=== PATIENT | male | born 1990 | race American Indian/Alaskan Native ===

== ENCOUNTER 2016-10-18 14:37 | Emergency (ER) | payer SELFPAY ==
[2016-10-18 14:49] VITALS: BP 142/88
--- NOTE | 2016-10-18 15:01 | EDM.PDOC ---
ED HPI Trauma - General Chief Complaint: Upper Extremity Injury/Pain Stated Complaint: HAND Time Seen by Provider: 10/18/16 14:50 Source: Reports: Patient History Limitations: Reports: No limitations - History of Present Illness INITIAL COMMENTS - FREE TEXT/NARRATIVE: This 26 yo male patient reports to the ED with right hand pain. The patient reports he was drinking last night, got mad and punched a steel beam. The patient reports most of the pain is in his right 2nd-5th metacarpals extending to his wrist. Symptom Onset Date: 10/17/16 Occurred When: yesterday Occurred Where: other Method of Injury: direct blow Severity: moderate Pain/Injury Location: Reports: upper extremity, right Consciousness: Reports: no loss of consciousness Associated Symptoms: Reports: no other symptoms Allergies/ADRs: Allergies ibuprofen Allergy (Verified 10/18/16 14:43) Headache Penicillins Allergy (Verified 10/18/16 14:43) Rash Home Medications: Ambulatory Orders Naproxen 1 tab PO BID PRN 10/18/16 [Confirmed 10/18/16] Past Medical History - Past Health History Medical/Surgical History: Denies Medical/Surgical History Social & Family History - Tobacco Use Smoking Status *Q: Current Every Day Smoker Years of Tobacco use: 8 Packs/Tins Daily: 0.2 Used Tobacco, but Quit: No Month Tobacco Last Used: december Second Hand Smoke Exposure: Yes - Caffeine Use Caffeine Use: Reports: Coffee, Soda - Alcohol Use Days Per Week of Alcohol Use: 1 Number of Drinks Per Day: 4 Total Drinks Per Week: 4 Date of Last Drink: 10/17/16 Time of Last Drink: 02:00 - Recreational Drug Use Recreational Drug Use: No Review of Systems - Review of Systems Review Of Systems: ROS reveals no pertinent complaints other than HPI. Trauma Exam - Physical Exam Exam: See Below Exam Limited By: No limitations General Appearance: Reports: alert, WD/WN, moderate distress Head: Reports: atraumatic, normocephalic Eyes: bilateral eye: EOMI, normal inspection, PERRL Ears: Reports: normal external exam, normal canal, hearing grossly normal, normal TMs Nose: Reports: normal inspection, normal mucousa, no blood Throat/Mouth: Reports: Normal inspection, Normal lips, Normal teeth, Normal gums , Normal oropharynx, Normal voice, No airway compromise Neck: Reports: non-tender, full range of motion, normal alignment, normal inspection Respiratory Exam: Reports: no respiratory distress, lungs clear, normal breath sounds Cardiovascular: Reports: normal peripheral pulses, regular rate, rhythm, no edema, no gallop, no JVD, no murmur, no rub GI/Abdominal: Reports: normal bowel sounds, soft, non tender, no organomegaly, no distention, no abnormal bruit, no mass (Male) Exam: Deferred Rectal (Males) Exam: Deferred Back: Reports: full range of motion, normal inspection, non-tender Extremities: Reports: bony-point tenderness (right hand 2nd - 5th metacarpals), pain with movement, tenderness, other (the patient also has superficial wounds to the area) 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, alert, normal mood/affect, oriented x 3 Skin: Reports: Normal color, Warm/dry - Juliette Coma Score Best Eye Response (Rosie): (4) open spontaneously Best Verbal Response (Rosie): (5) oriented Best Motor Response (Rosie): (6) obeys commands Juliette Total: 15 ED TRAUMA EXTREMITY PROCEDURES - Splinting Right Upper Extremity Splint site: Right forearm - hand Pre-procedure NV status: normal Post-procedure NV status: normal Splint material: fiberglass Splint design: boxer splint Applied & form fitted by: provider Provider post-splint application NV check: NV status normal Complications: No Course - Vital Signs Last Recorded V/S: Last Vital Signs Temp 37.3 C 10/18/16 14:48 Pulse 87 10/18/16 14:48 Resp 20 10/18/16 14:48 BP 142/88 H 10/18/16 14:48 Pulse Ox 99 10/18/16 14:48 Departure - Departure Time of Disposition: 15:24 Disposition: Home, Self-Care 01 Condition: fair Clinical Impression: Fracture of metacarpal of right hand, closed Instructions: Metacarpal Fracture, [id number] Forms: ED Department Discharge Care Plan Goals: The patient was advised of the examination and x-ray results during the visit. The patient was placed in a boxer's splint while in the ED for stabilization of the fracture. The patient should follow-up with an language specialist for continued evaluation and further management. The patient should rest, ice and elevate the extremity. The patient may take Tylenol for temporary symptom relief. If the patient has any additional symptoms or concerns, the patient should either visit an language specialist, his primary care facility or return to the emergency department.
--- NOTE | 2016-10-18 15:09 | CR ---
CLINICAL HISTORY: 26-year-old male with right hand pain. INTERPRETATION: Acute mildly angulated, fractures base of the fourth and fifth metacarpals (both met acarpals show evidence of previous, healed fractures). Overlying soft tissue swelling but no joint d islocation. No foreign bodies. No other hand or right wrist fracture/dislocation. CONCLUSION: Acute fractures base of the fourth and fifth metacarpals right hand.
== END 2016-10-18 15:32 | disposition home or self-care (01) ==
LOC: DL.ED 14:37
DX: S62.314A Displaced fracture of base of fourth metacarpal bone, right hand, initial encounter for closed fracture (principal); S62.316A Displaced fracture of base of fifth metacarpal bone, right hand, initial encounter for closed fracture; F17.210 Nicotine dependence, cigarettes, uncomplicated; Z88.0 Allergy status to penicillin; Z88.6 Allergy status to analgesic agent; W22.8XXA Striking against or struck by other objects, initial encounter
CPT/HCPCS: 29125; 73130-RT; 99283

== ENCOUNTER 2017-03-23 11:27 | Emergency (ER) | payer SELFPAY ==
[2017-03-23 11:38] VITALS: BP 116/82
--- NOTE | 2017-03-23 11:39 | EDM.PDOC ---
ED HPI GENERAL MEDICAL PROBLEM - General Chief Complaint: ENT Problem Stated Complaint: ABSESS TOOTH Time Seen by Provider: 03/23/17 11:33 Source of Information: Reports: Patient History Limitations: Reports: No Limitations - History of Present Illness INITIAL COMMENTS - FREE TEXT/NARRATIVE: 26 yo male presents with dental pain x 2 days. States that he woke this am with swelling of face. Mild swelling noted to lateral to nose on right. dental carries noted to tooth #7 with erythema and swelling noted. Denies fever or other complaints. 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: Other Medication(s) (oragel, mouthwash) Right Lower Oral/Mouth Pain Score (Numeric/FACES): 7 - Related Data Allergies Allergy/AdvReac Type Severity Reaction Status Date / Time ibuprofen Allergy Headache Verified 03/23/17 11:34 Penicillins Allergy Rash Verified 03/23/17 11:34 Home Meds: Home Meds Naproxen 1 tab PO BID PRN 10/18/16 [History] Past Medical History - Past Health History Medical/Surgical History: Denies Medical/Surgical History - Past Surgical History Musculoskeletal Surgical History: Reports: Arthroscopic Knee, Other (See Below) Social & Family History - Tobacco Use Smoking Status *Q: Current Every Day Smoker Years of Tobacco use: 8 Packs/Tins Daily: 0.2 Used Tobacco, but Quit: No Month Tobacco Last Used: december Second Hand Smoke Exposure: Yes - Caffeine Use Caffeine Use: Reports: Coffee, Soda - Alcohol Use Days Per Week of Alcohol Use: 1 Number of Drinks Per Day: 4 Total Drinks Per Week: 4 - Recreational Drug Use Recreational Drug Use: No ED ROS ENT - Review of Systems Review Of Systems: ROS reveals no pertinent complaints other than HPI. ED EXAM, ENT - Physical Exam Exam: See Below Exam Limited By: No Limitations General Appearance: Alert, WD/WN, No Apparent Distress Eye Exam: Bilateral Eye: Normal Inspection, PERRL Nose: Normal Inspection, Normal Mucousa, No Blood Mouth/Throat: Normal Lips, Dental Abcess, Dental Pain, Dental Tenderness, Dental Trauma Head: Facial Swelling (right side of nose that is mild) Respiratory/Chest: No Respiratory Distress, Lungs Clear, Normal Breath Sounds, No Accessory Muscle Use, Chest Non-Tender Cardiovascular: Normal Peripheral Pulses, Regular Rate, Rhythm, No Edema, No Gallop, No JVD, No Murmur, No Rub Course - Vital Signs Last Recorded V/S: Last Vital Signs Temp 98.6 F 03/23/17 11:35 Pulse 83 03/23/17 11:35 Resp 18 03/23/17 11:35 BP 116/82 03/23/17 11:35 Pulse Ox 93 L 03/23/17 11:35 - Orders/Labs/Meds Meds: Medications Discontinued Medications Generic Name Dose Route Start Last Admin Trade Name Freq PRN Reason Stop Dose Admin Clindamycin HCl 300 mg 03/23/17 11:46 03/23/17 11:49 Cleocin PO 03/23/17 11:47 300 mg ONETIME ONE Administration Departure - Departure Time of Disposition: 11:51 Disposition: Home, Self-Care 01 Condition: Good Clinical Impression: Dental abscess - Discharge Information Instructions: Dental Abscess Forms: ED Department Discharge Additional Instructions: Make sure you call your dentist on Saturday for an appointment. Continue using the over the counter medications as directed. Follow up with dentist as soon as possible.
[2017-03-23] MEDS ORDERED: Clindamycin HCl 150 MG Cap PO ONE (11:46)
== END 2017-03-23 11:58 | disposition home or self-care (01) ==
LOC: DL.ED 11:27
DX: K04.7 Periapical abscess without sinus (principal); F17.210 Nicotine dependence, cigarettes, uncomplicated; Z88.0 Allergy status to penicillin; Z88.6 Allergy status to analgesic agent
CPT/HCPCS: 99282; A9270

== ENCOUNTER 2021-04-01 22:56 | Emergency (ER) | payer SELFPAY ==
[2021-04-01 23:39] VITALS: BP 133/104; PULSE 61
[2021-04-01] MEDS ORDERED: Bacitracin Oint 1 GM U/D Packet TOP ONE (23:39)
[2021-04-01] MEDS ORDERED: Diphtheria,Pertussis(Acell),Tetanus Vaccine 0.5 ML Syringe IM ONE (23:39)
[2021-04-01] MEDS ORDERED: Lidocaine 1% 30 ML SDV INJECT ONE (23:39)
--- NOTE | 2021-04-02 00:07 | EDM.PDOC ---
ED HPI GENERAL MEDICAL PROBLEM - General Chief Complaint: Upper Extremity Injury/Pain Stated Complaint: LEFT RING FINGER & PINKY FINGER CUT Time Seen by Provider: 04/01/21 23:45 Source of Information: Reports: Patient History Limitations: Reports: No Limitations - History of Present Illness INITIAL COMMENTS - FREE TEXT/NARRATIVE: ED with c/o laceration to left 4th and 5th fingers. States removing sudhir at work and cut on piece of vinyl. Left Finger-Little Pain Score (Numeric/FACES): 4 - Related Data Allergies Allergy/AdvReac Type Severity Reaction Status Date / Time ibuprofen Allergy Headache Verified 03/23/17 11:34 Penicillins Allergy Rash Verified 03/23/17 11:34 Home Meds: Home Meds Naproxen 1 tab PO BID PRN 10/18/16 [History] Past Medical History - Past Health History Medical/Surgical History: Denies Medical/Surgical History HEENT History: Reports: None Cardiovascular History: Reports: None Respiratory History: Reports: None Gastrointestinal History: Reports: None Genitourinary History: Reports: None Neurological History: Reports: None Psychiatric History: Reports: None Endocrine/Metabolic History: Reports: None Hematologic History: Reports: None Immunologic History: Reports: None Oncologic (Cancer) History: Reports: None Dermatologic History: Reports: None - Past Surgical History Musculoskeletal Surgical History: Reports: Arthroscopic Knee, Other (See Below) Other Musculoskeletal Surgeries/Procedures:: right hand fracture. Social & Family History - Tobacco Use Tobacco Use Status *Q: Current Every Day Tobacco User Years of Tobacco use: 10 Packs/Tins Daily: 1 - Caffeine Use Caffeine Use: Reports: Coffee, Soda Review of Systems - Review of Systems Review Of Systems: Comprehensive ROS is negative, except as noted in HPI. ED EXAM, GENERAL - Physical Exam Exam: See Below Exam Limited By: No Limitations General Appearance: Alert, No Apparent Distress Ears: Normal External Exam, Hearing Grossly Normal Throat/Mouth: Normal Voice Head: Atraumatic, Normocephalic Respiratory/Chest: No Respiratory Distress, Lungs Clear Cardiovascular: Regular Rate, Rhythm Extremities: Normal Range of Motion Neurological: Alert, Oriented, Normal Cognition Psychiatric: Normal Affect, Normal Mood Skin Exam: Warm, Wound/Incision (laceration proximal 4th and 5th fingers, superficial palmar surface, no active bleeding) ED TRAUMA EXTREMITY PROCEDURES - Laceration/Wound Repair Left Proximal Dorsal Digit - 4th (Ring) Lac/Wound Length In cm: 1 Appearance: Superficial, Clean Anesthetic Type: Local Local Anesthesia - Lidocaine (Xylocaine): 1% Plain Local Anesthetic Volume: 1cc Skin Prep: Chlorhexidine (Hibiciens), Saline Closed With: Sutures Suture Size: 4-0 # of Sutures: 1 Suture Type: Nylon, Interrupted Left Distal Dorsal Digit - 5th (Baby) Lac/Wound Length In cm: 1 Distal NVT: Neuro & Vascular Intact Anesthetic Type: Local Local Anesthesia - Lidocaine (Xylocaine): 1% Plain Local Anesthetic Volume: 1cc Skin Prep: Chlorhexidine (Hibiciens), Saline Closed With: Sutures Suture Size: 4-0 # of Sutures: 2 Suture Type: Nylon, Interrupted Tetanus Status Addressed: Yes Course - Vital Signs Last Recorded V/S: Last Vital Signs Temp 97.5 F 04/01/21 23:36 Pulse 61 04/01/21 23:36 Resp 18 04/01/21 23:36 BP 133/104 H 04/01/21 23:36 Pulse Ox 96 04/01/21 23:36 - Orders/Labs/Meds Meds: Medications Discontinued Medications Generic Name Dose Route Start Last Admin Trade Name Freq PRN Reason Stop Dose Admin Bacitracin 1 dose 04/01/21 23:39 04/01/21 23:48 Bacitracin Oint 1 Gm U/D Packet TOP 04/01/21 23:40 1 dose ONETIME ONE Administration Diphtheria/Tetanus/Acell Pertussis 0.5 ml 04/01/21 23:39 04/01/21 23:47 Diphtheria,Pertussis(Acell),Tetanus Vaccine 0.5 Ml Syringe IM 04/01/21 23:40 0.5 ml .ONCE ONE Administration Lidocaine HCl 30 ml 04/01/21 23:39 04/01/21 23:48 Lidocaine 1% 30 Ml Sdv INJECT 04/01/21 23:40 30 ml ONETIME ONE Administration Departure - Departure Time of Disposition: 00:42 Disposition: Home, Self-Care 01 Condition: Good Clinical Impression: Laceration - Discharge Information *PRESCRIPTION DRUG MONITORING PROGRAM REVIEWED*: No *COPY OF PRESCRIPTION DRUG MONITORING REPORT IN PATIENT MARCEL: No Instructions: Laceration Care, Adult, [id number] Forms: ED Department Discharge Additional Instructions: keep clean and dry keep covered while working wash soap and water at least twice daily sutures out 10-14 days follow up sooner if swelling redness or drainage
== END 2021-04-02 00:49 | disposition home or self-care (01) ==
LOC: DL.ED 22:56
DX: S61.216A Laceration without foreign body of right little finger without damage to nail, initial encounter (principal); S61.217A Laceration without foreign body of left little finger without damage to nail, initial encounter; Z88.0 Allergy status to penicillin; Z88.8 Allergy status to other drugs, medicaments and biological substances; Z23 Encounter for immunization; Z72.0 Tobacco use; W26.8XXA Contact with other sharp object(s), not elsewhere classified, initial encounter; Y99.0 Civilian activity done for income or pay
CPT/HCPCS: 12001; 90471; 90715; 99282-25

== ENCOUNTER 2023-02-08 02:15 | Emergency (ER) | payer SELFPAY ==
[2023-02-08] MEDS ORDERED: Ondansetron 4 MG/2 ML SDV IVPUSH ONE (02:22)
[2023-02-08 03:22] VITALS: BP 139/97; PULSE 96
== END 2023-02-08 03:49 | disposition home or self-care (01) ==
LOC: DL.ED 02:15
DX: S09.90XA Unspecified injury of head, initial encounter (principal); F17.210 Nicotine dependence, cigarettes, uncomplicated; Z79.899 Other long term (current) drug therapy; Z88.0 Allergy status to penicillin; Z88.8 Allergy status to other drugs, medicaments and biological substances; W18.30XA Fall on same level, unspecified, initial encounter; Y92.59 Other trade areas as the place of occurrence of the external cause
CPT/HCPCS: 70450; 72125; 96374; 99282; 99284; J2405